=== PATIENT | male | born 1980 | race Two or more races ===

== ENCOUNTER 2025-05-31 17:36 | Emergency (ER) | payer BC, SELFPAY ==
[2025-05-31 17:44] VITALS: BP 152/81; PULSE 74; RESP 20; TEMP 37; O2SAT 95; BMI 38.0
--- NOTE | 2025-05-31 17:49 | PD.EDWOUND ---
ED Wound/Laceration-RME/HPI General Chief Complaint: Wound/Laceration Stated Complaint: Left 1st digit laceration Time Seen by Provider: 05/31/25 17:48 Arrival date/time: 05/31/25 17:36 45-year-old male with no significant medical problems presents to the emergency department today he actually cut his left index finger with a [employer] screwdriver. Limitations: no limitations Related Data Previous Rx's ?Medication ?Instructions ?Recorded ciprofloxacin HCl 500 mg tablet 500 mg PO BID #14 tabs 10/02/18 hydrocodone 5 mg-acetaminophen 325 1 tab PO QID PRN pain #20 tabs 10/02/18 mg tablet ([place]) ibuprofen 600 mg tablet 600 mg PO QID #30 tabs 05/16/21 cephalexin 500 mg capsule 500 mg PO BID 5 days #10 caps 05/31/25 ibuprofen 800 mg tablet 800 mg PO TID PRN pain #30 tabs 05/31/25 Allergies Allergy/AdvReac Type Severity Reaction Status Date / Time shellfish derived Allergy Intermediate CONSTRICTS Verified 05/31/25 17:39 AIRWAY Review of Systems Review of Systems Systems Reviewed: All systems reviewed, normal except as documented Constitutional Constitutional: Reports system reviewed and no additional complaints, except as documented, Denies fever(s) and Denies headache(s) Eyes Eyes: Reports system reviewed and no additional complaints, except as documented and Denies blurry vision ENT Ears, Nose, Mouth, and Throat: Reports system reviewed and no additional complaints, except as documented, Denies headache(s), Denies nasal congestion and Denies nasal discharge Cardiovascular Cardiovascular: Reports system reviewed and no additional complaints, except as documented, Denies chest pain and Denies dyspnea Respiratory Respiratory: Reports system reviewed and no additional complaints, except as documented, Denies chest congestion, Denies cough and Denies dyspnea Gastrointestinal Gastrointestinal: Reports system reviewed and no additional complaints, except as documented and Denies abdominal pain Integumentary/Breasts Skin/Breast: Reports system reviewed and no additional complaints, except as documented, Denies rash and Reports wounds (Left index finger laceration) Neurologic Neurologic: Reports system reviewed and no additional complaints, except as documented, Reports as per HPI and Denies headache(s) Past Medical History Past Medical History NEUROLOGIC: Negative Neurological Disorders or Seizures CARDIAC: Negative Cardiac Disorders or Congestive Heart Failure RESPIRATORY: Negative Chronic Obstructive Pulmonary Disease (COPD) GASTROINTESTINAL: Negative Gastrointestinal Disorders GENITOURINARY: Negative Genitourinary Disorders or Renal Disease MUSCULOSKELETAL: Negative Musculoskeletal Disorders ENDOCRINE: Negative Endocrine Disorders, Diabetes Mellitus Type 1 or Diabetes Mellitus Type 2 HEMATOLOGIC: Negative Blood Disorders OTHER HISTORY: Positive Chicken Pox; Negative Autoimmune Disease, Falls, Blood Transfusions, Blood Transfusion Reaction or Anesthesia Reactions Social History SMOKING STATUS: Never smoker ED Exam General Limitations: Present no limitations General appearance: Present alert and in no apparent distress Head Head exam: Present atraumatic Eye Eye exam: Present normal appearance, PERRL and EOMI ENT ENT exam: Present normal exam, normal oropharynx and mucous membranes moist Neck Neck exam: Present normal inspection, full ROM and trachea midline Chest Chest inspection: Present normal inspection and symmetric chest wall rise Respiratory Respiratory exam: Present normal lung sounds bilaterally Cardiovascular Cardiovascular exam: Present regular rate, normal rhythm and normal heart sounds Abdominal Exam Abdominal exam: Present soft and normal bowel sounds Extremities Exam Extremities exam: Present normal inspection and full ROM Back Exam Back exam: Present normal inspection and full ROM Neurological Exam Neurological exam: Present alert, oriented X3 and CN II-XII intact Psychiatric Psychiatric exam: Present normal affect and normal mood Skin Skin exam: Present warm, dry and other (Left index finger laceration) Course Quality Measures none Orders Category Date Time Status Set Up Suture Tray STAT Care 05/31/25 17:49 Completed Wound Care NOW Care 05/31/25 17:49 Completed Lidocaine 1% 20 ml [Xylocaine 1% 20 ML] Med 05/31/25 17:49 Discontinued 20 ml INFL X1 ONE Vital Signs Vital signs: Vital Signs Temperature 98.6 F 05/31/25 17:44 Pulse Rate 74 05/31/25 17:44 Respiratory Rate 20 05/31/25 17:44 Blood Pressure 152/81 H 05/31/25 17:44 Pulse Oximetry (%) 95 05/31/25 17:44 Oxygen Delivery Method Room Air 05/31/25 17:44 O2 saturation 95% room air with normal limits PROCEDURES: Laceration Laceration 1: Site: hand Side (If applicable): left and right Size (cm): 3 Description: linear Depth: simple, single layer Local Anesthetic: lidocaine 1% Amount of anesthesia used (mL): 6 Pre-repair: irrigated extensively Skin layer closed with: nylon Suture size (cm): 4-0 Number of sutures: 7 Technique: simple, interrupted Wound / Laceration MDM Narrative MDM Narrative:: 45-year-old male with no significant medical problems presents to the emergency department today he actually cut his left index finger with a [employer] screwdriver. On exam patient well-appearing patient does not appear toxic no acute distress Patient does have a laceration approximately 3 cm left index finger on the dorsal aspect of the hand. There is no evidence of tendon ligamentous injury patient is full range of motion of the finger Wound irrigated copiously laceration repaired with total of 7 sutures At the time of discharge wounds well-approximated no bleeding Patient discharged home in no distress to follow-up with primary care doctor in the next 24 to 48 hours and for any worsening symptoms to return to the ER immediately Patient data External records reviewed:: [facility] previous records Clinical information provided by:: patient Social determinants that could affect healthcare access:: none Patient has the following chronic illnesses:: None How is presenting disease/condition affected by chronic disease/condition?: no chronic disease Evaluation data The following diagnostics were reviewed and interpreted by me:: other (specify) (N/A) Lab and/or radiology exams considered but not ordered:: Considered not indicated Interpretation Summary: N/A Medications / Prescriptions Medications or Prescriptions considered but not ordered:: Given Medication administrations:: Medication Administration History Discontinued Medications Lidocaine HCl (Lidocaine Hcl 1% 20 Ml Vial) 20 ml INFL X1 ONE Stop: 05/31/25 17:50 Last Admin: 05/31/25 17:57 Dose: 20 ml Documented By: Given Consultations Consultation(s) initiated? (list below): No Diagnosis Wound Differential Diagnosis: abrasion and avulsion of skin Most likely diagnosis given after review of the tests above:: Laceration Admission Indicated Admission indicated?: not indicated Admission Request Was there a request for admission?: No Disposition Plan Disposition Plan: Discharge Discharge Attestation Discharge Attestation: The patient and all family members were given an opportunity to ask questions and understood the discharge instructions. Discharge instructions specifically effects, indications for sooner follow up or return to the emergency department, and the expected course of current diagnosis. Patient condition: Stable Discharge Plan Plan Patient Disposition: HOME (Self Care) Discharge Disposition comment: Stable Prescriptions/Referrals Prescriptions/Med Rec: New ibuprofen 800 mg tablet 800 mg PO TID PRN (Reason: pain) Qty: 30 0RF cephalexin 500 mg capsule 500 mg PO BID 5 Days Qty: 10 0RF No Action hydrocodone-acetaminophen [[place]] 5-325 mg tablet 1 tab PO QID MDD 4 PRN (Reason: pain) Qty: 20 0RF ciprofloxacin HCl 500 mg tablet 500 mg PO BID Qty: 14 0RF ibuprofen 600 mg tablet 600 mg PO QID Qty: 30 0RF Problem List Clinical Impression: Laceration of finger of left hand Patient/Caregiver Discharge Instructions Education Materials: ED Wound Check (No Infection) Additional Instructions: Please follow up with your primary care doctor in the next 24-48hrs for any worsening symptoms return here immediately Print Language: Telugu Stand Alone Forms: Kandy Award Info., Patient Portal Info Letter PA/SUPERVISOR IN CHARGE Supervising Physician PA/SUPERVISOR IN CHARGE Supervising Physician: Dr. porter
[2025-05-31] MEDS: LIDOCAINE HCL 1% 20 ML VIAL INFL (17:57)
== END 2025-05-31 18:25 | disposition home or self-care (01) ==
LOC: SERX 18:00
PROVIDERS: Emergency Provider Family Medicine; PCP Family Medicine
DX: S61.211A Laceration without foreign body of left index finger without damage to nail, initial encounter (principal); W27.0XXA Contact with workbench tool, initial encounter
CPT/HCPCS: 12002; 99283; J3490